=== PATIENT | male | born 1975 | race African-American/Black ===

== ENCOUNTER 2018-01-27 11:23 | Emergency (ER) | payer OTHER ==
[2018-01-27 11:34] VITALS: BP 121/86; PULSE 74; TEMP 98.8; BMI 27.8
[2018-01-27] MEDS ORDERED: predniSONE 20 MG TABLET (UD) PO ONE (12:04)
[2018-01-27] MEDS ORDERED: ALBUTEROL SO4 2.5/IPRATROPIUM 0.5 INH SOL 3 ML VIAL.NEB. NEB ONE ×2 (12:04→12:11)
--- NOTE | 2018-01-27 12:04 | PDOC ---
History of Present Illness - General Chief Complaint: Cold Symptoms Stated Complaint: COUGH, WHEEZING (ASTHMA) Time Seen by Provider: 01/27/18 11:56 History Source: Patient Exam Limitations: No Limitations - History of Present Illness Initial Comments: 01/27/18 12:14 Patient is a 42-year-old male past medical history of asthma who presents to the emergency department today with coughing, runny nose. Patient states that he was recently released from correction and was taking Claritin nasal spray which helped with his symptoms. He states that today the wheezing is increased and he is having difficulty breathing. He also states that he would like STD testing at this time. Denies fevers, chills, earache, shortness of breath, chest pain, nausea, vomiting and diarrhea. Past History - Travel Traveled outside of the country in the last 30 days: No Close contact w/someone who was outside of country & ill: No - Past Medical History Allergies/Adverse Reactions: Allergies Allergy/AdvReac Type Severity Reaction Status Date / Time No Known Allergies Allergy Verified 01/27/18 11:29 Home Medications: Ambulatory Orders Albuterol Sulfate Inhaler - [Ventolin HFA Inhaler -] 1 - 2 inh PO Q4H #1 inhaler 01/27/18 Fluticasone Prop 0.05% Nasal [Flonase -] 1 - 2 spray NS DAILY #1 spray.pump 07/07 Loratadine [Claritin -] 10 mg PO DAILY #30 tablet 01/27/18 predniSONE [Deltasone -] 40 mg PO DAILY #8 tablet 01/27/18 Asthma: Yes COPD: No - Suicide/Smoking/Psychosocial Hx Smoking History: Never smoked Have you smoked in the past 12 months: No Number of Cigarettes Smoked Daily: 20 Information on smoking cessation initiated: No Hx Alcohol Use: No Drug/Substance Use Hx: No Substance Use Type: None Review of Systems - Review of Systems Able to Perform ROS?: Yes Comments:: 01/27/18 12:03 CONSTITUTIONAL: Absent: fever, chills, diaphoresis, generalized weakness, malaise, loss of appetite HEENT: Present: nasal congestion Absent: rhinorrhea, nasal congestion, throat pain, throat swelling, difficulty swallowing, mouth swelling, ear pain, eye pain, visual Changes CARDIOVASCULAR: Absent: chest pain, loss of consciousness, palpitations, irregular heart rate, peripheral edema RESPIRATORY: Present: dry cough, wheezing. Absent: shortness of breath, dyspnea with exertion , orthopnea, stridor, hemoptysis GASTROINTESTINAL: Absent: abdominal pain, abdominal distension, nausea, vomiting, diarrhea, constipation, melena, hematochezia GENITOURINARY: Absent: dysuria, frequency, urgency, hesitancy, hematuria, flank pain, genital pain MUSCULOSKELETAL: Absent: myalgia, arthralgia, joint swelling SKIN: Absent: rash, itching, pallor HEMATOLOGIC/IMMUNOLOGIC: Absent: easy bleeding, easy bruising, lymphadenopathy, frequent infections ENDOCRINE: Absent: unexplained weight gain, unexplained weight loss, heat intolerance, cold intolerance NEUROLOGIC: Absent: headache, focal weakness or paresthesias, dizziness, unsteady gait, seizure, mental status changes, bladder or bowel incontinence PSYCHIATRIC: Absent: anxiety, depression, suicidal or homicidal ideation, hallucinations. Is the patient limited Ecu[place] proficient: No *Physical Exam - Vital Signs Last Vital Signs Temp Pulse Resp BP Pulse Ox 98.8 F 74 16 121/86 97 01/27/18 11:29 01/27/18 11:29 01/27/18 11:29 01/27/18 11:29 01/27/18 11:29 - Physical Exam Comments: 01/27/18 12:03 GENERAL: Well developed, well nourished. Awake and alert. No acute distress. HEENT: Normocephalic, atraumatic. PERRLA, EOMI. No conjunctival pallor. Sclera are non- icteric. Moist mucous membranes. Oropharynx is clear. NECK: Supple. Full ROM. No JVD. Carotid pulses 2+ and symmetric, without bruits. No thyromegaly. No lymphadenopathy. CARDIOVASCULAR: Regular rate and rhythm. No murmurs, rubs, or gallops. Distal pulses are 2+ and symmetric. PULMONARY: No evidence of respiratory distress. Lungs clear with expiratory wheezing throughout all lung lawrence. No rales or rhonchi. SKIN: Warm and dry. Normal capillary refill. No rashes. No jaundice. NEUROLOGICAL: Alert, awake, appropriate. Cranial nerves 2-12 intact. No deficits to light touch and temperature in face, upper extremities and lower extremities. No motor deficits in the in face, upper extremities and lower extremities. Normoreflexic in the upper and lower extremities. Normal speech. Toes are down- going bilaterally. Gait is normal without ataxia. *DC/Admit/Observation/Transfer Diagnosis at time of Disposition: Encounter for assessment of sexually transmitted disease exposure Asthma exacerbation Qualifiers: Asthma severity: mild Asthma persistence: intermittent Qualified Code(s): J45.21 - Mild intermittent asthma with (acute) exacerbation - Discharge Dispostion Disposition: HOME Condition at time of disposition: Good Decision to Admit order: No - Prescriptions Prescriptions: Albuterol Sulfate Inhaler - [Ventolin HFA Inhaler -] 1 - 2 inh PO Q4H #1 inhaler Fluticasone Prop 0.05% Nasal [Flonase -] 1 - 2 spray NS DAILY #1 spray.pump Loratadine [Claritin -] 10 mg PO DAILY #30 tablet predniSONE [Deltasone -] 40 mg PO DAILY #8 tablet - Referrals Referrals: Rocky Cintron MD [Staff Physician] - - Patient Instructions Printed Discharge Instructions: DI for Asthma -- Adult Additional Instructions: 01/27/18 1. As discussed, a screening test for the HIV virus was performed today. Your HIV test is Negative (normal). 2. As discussed, if you engaged in high risk-behavior in the three (3) months prior to this test, you could still potentially be at risk and you will need to be re-tested. 3. As discussed, avoid any high risk behavior (such as unprotected sex or needle-sharing) in the future to minimize the chances of lidia HIV. He also an asthma exacerbation. Please use the pump every 4 hours as needed for difficulty breathing. Please take the prednisone daily starting tomorrow. Please take the Flonase and Claritin for ALLERGIES. Follow-up with her primary care doctor Return to emergency department if fevers, chills, increased difficulty breathing , or have any changes in your symptoms. - Post Discharge Activity Forms/Work/School Notes: Back to Work
[2018-01-27] MEDS ORDERED: predniSONE 20 MG TABLET (UD) ONE (12:11)
== END 2018-01-27 15:10 | disposition home or self-care (01) ==
LOC: JERFT 11:23
PROC: 3E0F7GC Introduction of Other Therapeutic Substance into Respiratory Tract, Via Natural or Artificial Opening (ICD-10-PCS; principal; 2018-01-27)
DX: J45.21 Mild intermittent asthma with (acute) exacerbation (principal); Z11.3 Encounter for screening for infections with a predominantly sexual mode of transmission
CPT/HCPCS: 36415; 86593; 87389; 87491; 87591; 99281-25; J7620

== ENCOUNTER 2021-05-12 08:47 | Emergency (ER) | payer OTHER ==
[2021-05-12 09:12] VITALS: BP 118/67; PULSE 72; TEMP 97.6; BMI 27.3
[2021-05-12] MEDS ORDERED: KETOROLAC TROMETHAMINE 30 MG/1 ML VIAL IM ONE (09:43)
[2021-05-12] MEDS ORDERED: METHOCARBAMOL 500 MG TABLET PO ONE (09:43)
[2021-05-12] MEDS ORDERED: METHOCARBAMOL 500 MG TABLET ONE (09:54)
[2021-05-12] MEDS ORDERED: KETOROLAC TROMETHAMINE 30 MG/1 ML VIAL ONE (09:54)
== END 2021-05-12 11:56 | disposition home or self-care (01) ==
LOC: JER 08:47 → JERFT 08:47
PROC: 3E023GC Introduction of Other Therapeutic Substance into Muscle, Percutaneous Approach (ICD-10-PCS; principal; 2021-05-12)
DX: S39.012A Strain of muscle, fascia and tendon of lower back, initial encounter (principal); M62.830 Muscle spasm of back; W10.8XXA Fall (on) (from) other stairs and steps, initial encounter
CPT/HCPCS: 72100-TC-FY; 73610-TC-LT-FY; 73630-TC-LT; 99284-25